=== PATIENT | female | born 1925 ===

== ENCOUNTER 2016-08-23 17:05 | Day surgery (SDC) | payer MEDICARE, OTHER ==
[~2016-08-23] VITALS: Ht 157.5 cm; Wt 89.8 kg
[2016-08-23 17:05] VITALS: BP 133/70
--- OUTSIDE RECORDS SUMMARY | 2016-08-23 17:17 | XMS REPORT | Clinical Summary ---
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 Juan Manuel Todd MD Other B-complex deficiencies PERNICIOUS ANEMIA 281.0 Active Juan Manuel Todd MD Pernicious anemia HYPOTHYROIDISM 244.9 Active Nate Hayes MD Unspecified hypothyroidism CVA 436 Active Nate Hayes MD Acute, but ill -defined, cerebrovascular disease RECURRENT UTI'S, HX OF V13.00 Active Nate Hayes MD Personal history of unspecified urinary disorder FATIGUE 780.79 Resolved Pk Valderrama MD Other malaise and fatigue DYSLIPIDEMIA 272.4 Active Nate Hayes MD Other and unspecified hyperlipidemia SINUSITIS 473.9 Resolved Nate Hayes MD Unspecified sinusitis (chronic) DIZZINESS 780.4 Resolved Pk Valderrama MD Dizziness and giddiness DYSURIA 788.1 Resolved Nate Hayes MD Dysuria ATAXIA 781.3 Resolved Pk Valderrama MD Lack of coordination ONYCHOMYCOSES 110.1 Resolved Pk Valderrama MD Dermatophytosis of nail MAXILLARY SINUSITIS 473.0 Resolved Estela Baker APRN Chronic maxillary sinusitis ORTHOSTASIS 458.0 Resolved Pk Valderrama MD Orthostatic hypotension NAUSEA WITH VOMITING 787.01 Resolved Nate Hayes MD Nausea with vomiting DYSURIA 788.1 Resolved Nate Hayes MD Dysuria PHARYNGITIS 462 Resolved Nate Hayes MD Acute pharyngitis DYSURIA 788.1 Resolved Nate Hayes MD Dysuria URINARY TRACT INFECTION 599.0 Resolved Pk Valderrama MD Urinary tract infection, site not specified URI 465.9 Resolved Pk Valderrama MD Acute upper respiratory infections of unspecified site EAR PAIN, RIGHT 388.70 Resolved Pk Valderrama MD Otalgia, unspecified ACTINIC KERATOSIS 702.0 Resolved Pk Valderrama MD Actinic keratosis BRONCHITIS 490 Resolved Pk Valderrama MD Bronchitis, not specified as acute or chronic Sinusitis, maxillary, acute 461.0 Resolved Pk Valderrama MD Acute maxillary sinusitis Upper respiratory infection, viral 465.9 Active Pk Valderrama MD Acute upper respiratory infections of unspecified site FOOT AND TOE(S), SUPERFICIAL FOREIGN BODY (SPLINTER), WITHOUT MAJOR OPEN WOUND , INFECTED 917.7 Active Nate Hayes MD Superficial foreign body (splinter) of foot and toe(s), without major open wound , infected FH Breast Cancer V16.3 Active Odilon Maciel MD Family history of malignant neoplasm of breast AFTERCARE FOLLOW SURGERY MUSCULOSKEL SYSTEM NEC V58.78 Active Odilon Maciel MD Aftercare following surgery of the musculoskeletal system, NEC Family History of Melanoma V16.8 Active Odilon Maciel MD Family history of other specified malignant neoplasm Sinusitis 461.9 Active Juan Manuel Todd MD Acute sinusitis, unspecified Aftercare following surgery of the skin and subcutaneous tissue, NEC V58.77 Active Bharat Mccoy NURSING TECH Aftercare following surgery of the skin and subcutaneous tissue, NEC NEOPLASM OF UNCERTAIN BEHAVIOR OF SKIN 238.2 Active Odilon Maicel MD Neoplasm of uncertain behavior of skin Boil 680.9 Active Shirley Valdes NURSING TECH Carbuncle and furuncle of unspecified site Health maintenance exam V70.0 Active Neyda Bennett LPN Routine general medical examination at a health care facility Ganglion cyst, wrist, left 727.41 Active Nate Hayes MD Ganglion of joint FATIGUE ICD-780.79 Inactive Pk Valderrama MD 2013 SINUSITIS ICD-473.9 Inactive Nate Hayes MD DIZZINESS ICD-780.4 Inactive Pk Valderrama MD DYSURIA ICD-788.1 Inactive Nate Hayes MD 09/02 ATAXIA ICD-781.3 Inactive Pk Valderrama MD 11/11 ONYCHOMYCOSES ICD-110.1 Inactive Pk Valderrama MD MAXILLARY SINUSITIS ICD-473.0 Inactive Estela Baker APRN ORTHOSTASIS ICD-458.0 Inactive Pk Valderrama MD NAUSEA WITH VOMITING ICD-787.01 Inactive Nate Hayes MD DYSURIA ICD-788.1 Inactive Nate Hayes MD 10/28 PHARYNGITIS ICD-462 Inactive Nate Hayes MD DYSURIA ICD-788.1 Inactive Nate Hayes MD 01/13 URINARY TRACT INFECTION ICD-599.0 Inactive Pk Valderrama MD URI ICD-465.9 Inactive Pk Valderrama MD EAR PAIN, RIGHT ICD-388.70 Inactive Pk Valderrama MD ACTINIC KERATOSIS ICD-702.0 Inactive Pk Valderrama MD BRONCHITIS ICD-490 Inactive Pk Valderrama MD 2013 Sinusitis, maxillary, acute ICD-461.0 Inactive Pk Valderrama MD Medication List Medication Instructions Start Date Stop Date Generic Name NDC Status Provider Patient Instruction MUPIROCIN 2 % OINT apply twice a day MUPIROCIN 41354516826 No Longer Active Nate Hayes MD Active FLONASE 50 MCG/ACT SUSP 2 puffs in each nostril daily as needed FLUTICASONE PROPIONATE 88269836566 Active Nate Hayes MD Active LORATADINE 10 MG TABS 1 tablet by mouth daily PRN drainage/congestion LORATADINE 80187196807 No Longer Active Nate Hayes MD Active BACTROBAN 2 % CREAM Use twice a day to the boil. MUPIROCIN CALCIUM 86059048304 Active Shirley Yokum NURSING TECH Active CLARITHROMYCIN 500 MG TABS 1 tablet by mouth twice daily CLARITHROMYCIN 10847473853 No Longer Active Shirley Yokum NURSING TECH Active ZITHROMAX 250 MG TAB 2 po today, then 1 po q days 2-5 AZITHROMYCIN 34422774719 No Longer Active Juan Manuel Todd MD Active CEPHALEXIN 500 MG CAPS 1 twice a day CEPHALEXIN 15696005836 No Longer Active Juan Mnauel Todd MD Active CEPHALEXIN 500 MG TABS One by mouth four times daily CEPHALEXIN 11318339222 No Longer Active Juan Manuel Todd MD Active CEFTIN 500 MG TAB 1 tablet by mouth twice daily CEFUROXIME AXETIL 67842773063 No Longer Active Nate Hayes MD Active CEFTIN 500 MG TAB 1 by mouth twice daily for fourteen days 11/11 CEFUROXIME AXETIL 50651511153 No Longer Active Pk Valderrama MD Active PREDNISONE 20 MG TAB 2 tabs daily for 3 days, 1 tab daily for 3 days, 1/2 tab daily for 2 days PREDNISONE 64082806826 No Longer Active Gus Snider DO Active LEVAQUIN 500 MG TAB 1 tablet by mouth daily LEVOFLOXACIN 10658005934 No Longer Active Gus Snider DO Active ZITHROMAX 250 MG TAB 2 po today, then 1 po q days 2-8 AZITHROMYCIN 34989022642 No Longer Active Estela Baker APRN Active LORATADINE 10 MG TABS 1 tablet by mouth daily as needed for allergies 2012 LORATADINE 42698939615 No Longer Active Estela Baker APRN Active EQ STOOL SOFTENER/LAXATIVE 8.6-50 MG TABS 2 tablets at bedtime SENNOSIDES-DOCUSATE SODIUM 59798540004 Active Nate Hayes MD Active CIPRO 250 MG TAB 1 tablet by mouth twice daily CIPROFLOXACIN HCL 96742864479 No Longer Active Nate Hayes MD Active LUTEIN 20 MG CAPS one capsule daily LUTEIN 32391685574 Active Nate Hayes MD Active ALFALFA 250 MG TABS 2 tablets daily ALFALFA 19157799475 No Longer Active Nate Hayes MD Active ZITHROMAX Z-GIRMA 250 MG TABS 2 today, then 1 daily for 4 days 2012 AZITHROMYCIN 48247509282 No Longer Active Nate Hayes MD Active ASPIRIN 325 MG TAB one tablet daily as needed for headache ASPIRIN 79821400650 No Longer Active Nate Hayes MD Active L-LYSINE 500 MG CAPS one capsule daily LYSINE 95831919141 No Longer Active Nate Hayes MD Active PARSLEY LEAVES POWD one tablet daily PARSLEY LEAVES 49056920050 No Longer Active Nate Hayes MD Active LUTEIN 20 MG CAPS one capsule daily LUTEIN 71151473433 No Longer Active Nate Hayes MD Active GLUTAMINE 500 MG CAPS one capsule daily GLUTAMINE 25305283803 No Longer Active Nate Hayes MD Active VITAMIN E 400 IU CAP 2 capsules daily VITAMIN E 86206635454 No Longer Active Nate Hayes MD Active NIACIN 500 MG TAB one tablet daily NIACIN 06896370922 No Longer Active Nate Hayes MD Active BIOTIN 5000 MCG TABS one tablet daily BIOTIN 29774099435 No Longer Active Nate Hayes MD Active ZOFRAN ODT 4 MG (ONDANSETRON) 1 po q6hr PRN Nausea ZOFRAN ODT 4 MG (ONDANSETRON) No Longer Active Nate Hayes MD Active CIPRO 250 MG TAB 1 tablet by mouth twice daily CIPROFLOXACIN HCL 00740617503 No Longer Active Estela Baker APRN Active FLONASE 50 MCG/ACT SUSP 1 spray each nostril am and hs FLUTICASONE PROPIONATE 62012444226 No Longer Active Estela Baker APRN Active FLUDROCORTISONE ACETATE 0.1 MG TABS 1 by mouth every morning to prevent low blood pressure FLUDROCORTISONE ACETATE 20289486745 No Longer Active Nate Hayes MD Active AZITHROMYCIN 500 MG SOLR 1 po q day AZITHROMYCIN 62152160046 No Longer Active Nate Hayes MD Active KEFLEX 500 MG CAP 1 four times a day CEPHALEXIN 54210425975 No Longer Active Gus Snider DO Active TERBINAFINE HCL 250 MG TABS 1 daily for 12 weeks TERBINAFINE HCL 65555867468 No Longer Active Nate Hayes MD Active SYNTHROID 137 MCG TABS one tablet daily LEVOTHYROXINE SODIUM 81094155163 Active Shirley Valdes APRN Active GLUCOSAMINE CHONDR COMPLEX CAPS Take one by mouth daily GLUCOSAMINE- CHONDROITIN CAPS 46791890228 Active Nate Hayes MD Active CIPRO 250 MG TAB 1 tablet by mouth twice daily CIPROFLOXACIN HCL 15185145645 No Longer Active Janeen Ibarra RN Active DOXYCYCLINE HYCLATE 100 MG CAP 1 cap by mouth twice daily DOXYCYCLINE HYCLATE 93200093784 No Longer Active Nate Hayes MD Active NITROFURANTOIN MACROCRYSTAL 100 MG CAPS one tablet three times a week NITROFURANTOIN MACROCRYSTAL 71284324698 Active Nate Hayes MD Active ASPIRIN 81 MG TAB 1 tablet by mouth daily ASPIRIN 22554339575 Active Nate Hayes MD Active DOXYCYCLINE HYCLATE 100 MG CAP 1 cap by mouth twice daily DOXYCYCLINE HYCLATE 100 MG CAP 944110 DOXYCYCLINE HYCLATE Inactive CIPRO 250 MG TAB 1 tablet by mouth twice daily CIPRO 250 MG TAB 639826 CIPROFLOXACIN HCL Inactive KEFLEX 500 MG CAP 1 four times a day KEFLEX 500 MG CAP 632588 CEPHALEXIN Inactive AZITHROMYCIN 500 MG SOLR 1 po q day AZITHROMYCIN 500 MG SOLR 958085 AZITHROMYCIN Inactive FLUDROCORTISONE ACETATE 0.1 MG TABS 1 by mouth every morning to prevent low blood pressure FLUDROCORTISONE ACETATE 0.1 MG TABS 136834 FLUDROCORTISONE ACETATE Inactive FLONASE 50 MCG/ACT SUSP 1 spray each nostril am and hs FLONASE 50 MCG/ACT SUSP 095740 FLUTICASONE PROPIONATE Inactive ZOFRAN ODT 4 MG (ONDANSETRON) 1 po q6hr PRN Nausea ZOFRAN ODT 4 MG (ONDANSETRON) Inactive BIOTIN 5000 MCG TABS one tablet daily BIOTIN 5000 MCG TABS 424055 BIOTIN Inactive NIACIN 500 MG TAB one tablet daily NIACIN 500 MG TAB 506879 NIACIN Inactive VITAMIN E 400 IU CAP 2 capsules daily VITAMIN E 400 IU CAP 959833 VITAMIN E Inactive GLUTAMINE 500 MG CAPS one capsule daily GLUTAMINE 500 MG CAPS 795161 GLUTAMINE Inactive LUTEIN 20 MG CAPS one capsule daily LUTEIN 20 MG CAPS 789323 LUTEIN Inactive PARSLEY LEAVES POWD one tablet daily PARSLEY LEAVES POWD PARSLEY LEAVES Inactive L-LYSINE 500 MG CAPS one capsule daily L-LYSINE 500 MG CAPS 554837 LYSINE Inactive ASPIRIN 325 MG TAB one tablet daily as needed for headache ASPIRIN 325 MG TAB 702224 ASPIRIN Inactive ALFALFA 250 MG TABS 2 tablets daily ALFALFA 250 MG TABS 473406 ALFALFA Inactive CIPRO 250 MG TAB 1 tablet by mouth twice daily CIPRO 250 MG TAB 034301 CIPROFLOXACIN HCL Inactive LORATADINE 10 MG TABS 1 tablet by mouth daily as needed for allergies 2012 LORATADINE 10 MG TABS 906133 LORATADINE Inactive LEVAQUIN 500 MG TAB 1 tablet by mouth daily LEVAQUIN 500 MG TAB 232915 LEVOFLOXACIN Inactive CEFTIN 500 MG TAB 1 by mouth twice daily for fourteen days 11/11 CEFTIN 500 MG TAB 442800 CEFUROXIME AXETIL Inactive CEFTIN 500 MG TAB 1 tablet by mouth twice daily CEFTIN 500 MG TAB 233862 CEFUROXIME AXETIL Inactive CEPHALEXIN 500 MG TABS One by mouth four times daily CEPHALEXIN 500 MG TABS 960205 CEPHALEXIN Inactive CEPHALEXIN 500 MG CAPS 1 twice a day CEPHALEXIN 500 MG CAPS 519184 CEPHALEXIN Inactive LORATADINE 10 MG TABS 1 tablet by mouth daily PRN drainage/congestion LORATADINE 10 MG TABS 458967 LORATADINE Inactive MUPIROCIN 2 % OINT apply twice a day MUPIROCIN 2 % OINT 311537 MUPIROCIN Inactive TERBINAFINE HCL 250 MG TABS 1 daily for 12 weeks TERBINAFINE HCL 250 MG TABS 314195 TERBINAFINE HCL Inactive CIPRO 250 MG TAB 1 tablet by mouth twice daily CIPRO 250 MG TAB 505036 CIPROFLOXACIN HCL Inactive ZITHROMAX Z-GIRMA 250 MG TABS 2 today, then 1 daily for 4 days 2012 ZITHROMAX Z-GIRMA 250 MG TABS 8339650 AZITHROMYCIN Inactive ZITHROMAX 250 MG TAB 2 po today, then 1 po q days 2-8 ZITHROMAX 250 MG TAB 0909919 AZITHROMYCIN Inactive PREDNISONE 20 MG TAB 2 tabs daily for 3 days, 1 tab daily for 3 days, 1/2 tab daily for 2 days PREDNISONE 20 MG TAB 994642 PREDNISONE Inactive ZITHROMAX 250 MG TAB 2 po today, then 1 po q days 2-5 ZITHROMAX 250 MG TAB 4540978 AZITHROMYCIN Inactive CLARITHROMYCIN 500 MG TABS 1 tablet by mouth twice daily CLARITHROMYCIN 500 MG TABS 984635 CLARITHROMYCIN Inactive Immunizations Vaccine Administration Date Value Standard Description Td (adult) vaccine, adsorbed, preservative free Td (adult) preservative free [[id number]] tetanus and diphtheria toxoids, adsorbed, preservative free, for adult use Td (adult) vaccine, adsorbed Td (adult) adsorbed [CVX09] Vital Signs Date Name Value Unit Range Description blood pressure, diastolic - 8462-4 77 mm[Hg] BP cervantes blood pressure, systolic - 8480-6 157 mm[Hg] BP sys pulse rate E&M - 8867-4 75 /min Heart rate temperature E&M 97.5 [degF] Body temperature weight E&M - 3141-9 196.8 [lb_av] Weight Measured blood pressure, diastolic - 8462-4 65 mm[Hg] BP cervantes blood pressure, systolic - 8480-6 99 mm[Hg] BP sys pulse rate E&M - 8867-4 80 /min Heart rate temperature E&M 98.2 [degF] Body temperature weight E&M - 3141-9 196 [lb_av] Weight Measured blood pressure, diastolic - 8462-4 82 mm[Hg] BP cervantes blood pressure, systolic - 8480-6 171 mm[Hg] BP sys pulse rate E&M - 8867-4 81 /min Heart rate temperature E&M 98 [degF] Body temperature weight E&M - 3141-9 201.6 [lb_av] Weight Measured blood pressure, diastolic - 8462-4 75 mm[Hg] BP cervantes blood pressure, systolic - 8480-6 144 mm[Hg] BP sys height E&M - 8302-2 62.5 [in_us] Bdy height pulse rate E&M - 8867-4 73 /min Heart rate temperature E&M 97.5 [degF] Body temperature weight E&M - 3141-9 199.50 [lb_av] Weight Measured blood pressure, diastolic - 8462-4 79 mm[Hg] BP cervantes blood pressure, systolic - 8480-6 157 mm[Hg] BP sys pulse rate E&M - 8867-4 71 /min Heart rate temperature E&M 98.3 [degF] Body temperature weight E&M - 3141-9 201.8 [lb_av] Weight Measured blood pressure, diastolic - 8462-4 67 mm[Hg] BP cervantes blood pressure, systolic - 8480-6 110 mm[Hg] BP sys height E&M - 8302-2 62.5 [in_us] Bdy height pulse rate E&M - 8867-4 74 /min Heart rate temperature E&M 97.4 [degF] Body temperature weight E&M - 3141-9 197.8 [lb_av] Weight Measured blood pressure, diastolic - 8462-4 61 mm[Hg] BP cervantes blood pressure, systolic - 8480-6 109 mm[Hg] BP sys pulse rate E&M - 8867-4 82 /min Heart rate temperature E&M 98.5 [degF] Body temperature weight E&M - 3141-9 200 [lb_av] Weight Measured blood pressure, diastolic - 8462-4 68 mm[Hg] BP cervantes blood pressure, systolic - 8480-6 108 mm[Hg] BP sys height E&M - 8302-2 62.5 [in_us] Bdy height pulse rate E&M - 8867-4 78 /min Heart rate temperature E&M 97.6 [degF] Body temperature weight E&M - 3141-9 200.8 [lb_av] Weight Measured blood pressure, diastolic - 8462-4 86 mm[Hg] BP cervantes blood pressure, systolic - 8480-6 163 mm[Hg] BP sys height E&M - 8302-2 62.5 [in_us] Bdy height pulse rate E&M - 8867-4 74 /min Heart rate temperature E&M 98.3 [degF] Body temperature weight E&M - 3141-9 203 [lb_av] Weight Measured blood pressure, diastolic - 8462-4 78 mm[Hg] BP cervantes blood pressure, systolic - 8480-6 164 mm[Hg] BP sys height E&M - 8302-2 62.5 [in_us] Bdy height pulse rate E&M - 8867-4 72 /min Heart rate temperature E&M 98.7 [degF] Body temperature weight E&M - 3141-9 202.4 [lb_av] Weight Measured blood pressure, diastolic - 8462-4 78 mm[Hg] BP cervantes blood pressure, systolic - 8480-6 166 mm[Hg] BP sys height E&M - 8302-2 62.5 [in_us] Bdy height pulse rate E&M - 8867-4 71 /min Heart rate temperature E&M 98.1 [degF] Body temperature weight E&M - 3141-9 200 [lb_av] Weight Measured Diagnostic Results Date Name Value Unit Range Description Lab Report: Lipid Panel - Chemistry cholesterol, serum 153 mg/dL 564-366 1828/01/28 triglyceride, serum, fasting 101 mg/dL 30-200 HDL cholesterol, serum 39 mg/dL 32-96 LDL cholesterol, serum 94 mg/dL 0-130 Lab Report: Thyroid Stimulating Hormone (L), Free Thyroxine (L) - Chemistry TSH 0.90 m[iU]/mL 0.36-3.74 thyroxine, serum, free 1.29 ng/dL 0.76-1.46 Encounters Code Encounter Date Provider Facility CPT-10586 Level 2 Est. Patient 15:20:20 INJURY/SAFETY HAZARD ASSESSMENT Nate Hayes MD [facility] CPT-38475 Level 3 Est. Patient 16:11:19 INJURY/SAFETY HAZARD ASSESSMENT Shirley Valdes APRN [facility] CPT-78413 Level 2 Est. Patient 19:37:34 CDT Odilon Maciel MD [facility] CPT-47172 Level 3 Est. Patient 11:32:55 CDT Juan Manuel Todd MD [facility] CPT-46172 Level 2 Est. Patient 12:55:17 CDT Nate Hayes MD [facility] CPT-96688 Level 2 Est. Patient 15:29:55 CDT Odilon Maciel MD [facility] CPT-94550 Level 2 Est. Patient 15:26:34 CDT Odilon Maciel MD [facility]-30037 Level 3 Est. Patient 11:27:22 CDT Nate Hayes MD [facility] CPT-88711 Level 3 Est. Patient 08:56:03 CDT Pk Valderrama MD [facility]-93278 Level 3 Est. Patient 15:01:27 INJURY/SAFETY HAZARD ASSESSMENT Gus Snider [facility] CPT-78830 Level 3 Est. Patient 10:16:09 CDT Nate Hayes MD [facility]-33512 Level 3 Est. Patient 15:36:44 CDT Estela Baker [facility] CPT-71498 Level 2 Est. Patient 12:13:29 CDT Nate Hayes MD [facility] CPT-52934 Level 3 Est. Patient 16:06:11 CDT Nate Hayes MD [facility] CPT-25085 Level 3 Est. Patient 10:30:11 CDT Nate Hayes MD [facility] CPT-53031 Level 3 Est. Patient 10:02:38 CDT Nate Hayes MD [facility] CPT-29546 Level 3 Est. Patient 09:55:25 CDT Estela Baker [facility] CPT-13642 Level 3 Est. Patient 14:52:28 CDT Nate Hayes MD [facility] CPT-43068 Level 4 Est. Patient 15:41:03 CDT Nate Hayes MD [facility] CPT-16538 Level 3 Est. Patient 14:07:57 INJURY/SAFETY HAZARD ASSESSMENT Gus Snider [facility] CPT-08244 Level 3 Est. Patient 11:33:35 CDT Nate Hayes MD [facility] CPT-57556 Level 3 Est. Patient 12:19:54 CDT Nate Hayes MD [facility] CPT-40901 Level 3 Est. Patient 12:29:59 CDT Nate Hayes MD [facility] CPT-47941 Level 3 Est. Patient 14:22:23 CDT Nate Hayes MD [facility] CPT-01800 Level 3 Est. Patient 14:24:43 CDT Nate Hayes MD [facility] CPT-62383 Level 4 Est. Patient 16:40:35 CDT Nate Hayes MD [facility] Procedures Code Procedure Name Date Entry Date Standard Description CPT-J3301 Kenalog 40 mg (Triamcinolone Acetonide) 15:20:20 INJURY/SAFETY HAZARD ASSESSMENT CPT-80664 Aspir/Inject Sm Joint 15:20:20 INJURY/SAFETY HAZARD ASSESSMENT CPT-LR Lesion Removal 19:37:34 CDT CPT-86429 Postop F/U Visit 13:39:43 CDT CPT-62626 Postop F/U Visit 14:18:40 CDT CPT-31304 Postop F/U Visit 13:48:50 CDT CPT-15511 Administration single or combination vaccine inc oral 11 :11:25 CDT CPT-28986 Td (adult) preservative free 11:11:25 CDT CPT-99443 Toes 2V 10:59:17 CDT CPT-Cryo Cryotherapy 10:16:09 CDT CPT-40332 Administration single or combination vaccine inc oral 14 :45:19 CDT CPT-38637 Td (Adult) 14:45:19 CDT CPT-J3420 Vitamin B12 1000mcg (Cyanocobalamin) 09:25:21 CDT 02/09 CPT-33358 Abx/Therapy Injection 09:25:21 CDT CPT-J3420 Vitamin B12 1000mcg (Cyanocobalamin) 08:47:05 CDT 01/09 CPT-10867 Abx/Therapy Injection 08:47:05 CDT CPT-J3420 Vitamin B12 1000mcg (Cyanocobalamin) 08:55:43 CDT 12/11 CPT-97455 Abx/Therapy Injection 08:55:43 CDT CPT-J3420 Vitamin B12 1000mcg (Cyanocobalamin) 09:03:04 CDT 11/10 CPT-77049 Abx/Therapy Injection 09:03:04 CDT CPT-J3420 Vitamin B12 1000mcg (Cyanocobalamin) 12:13:56 CDT 10/10 CPT-94052 Abx/Therapy Injection 12:13:56 CDT CPT-80777 Abx/Therapy Injection 18:16:38 CDT CPT-J1040 Depo Medrol 80 mg (Methyl Prednisolone Acetate) 14:24: 43 CDT CPT-J3420 Vitamin B12 1000mcg (Cyanocobalamin) 12:19:01 CDT 09/09 CPT-21247 Abx/Therapy Injection 12:19:01 CDT CPT-J3420 Vitamin B12 1000mcg (Cyanocobalamin) 08:09:59 CDT 09/09 CPT-J3420 Vitamin B12 1000mcg (Cyanocobalamin) 09:03:46 INJURY/SAFETY HAZARD ASSESSMENT 07/31 CPT-08959 Abx/Therapy Injection 09:03:46 INJURY/SAFETY HAZARD ASSESSMENT CPT-J3420 Vitamin B12 1000mcg (Cyanocobalamin) 09:17:21 INJURY/SAFETY HAZARD ASSESSMENT 06/03 CPT-79725 Abx/Therapy Injection 09:17:21 INJURY/SAFETY HAZARD ASSESSMENT CPT-J3420 Vitamin B12 1000mcg (Cyanocobalamin) 14:48:13 INJURY/SAFETY HAZARD ASSESSMENT 05/03 CPT-04709 Abx/Therapy Injection 14:48:13 INJURY/SAFETY HAZARD ASSESSMENT CPT-J3420 Vitamin B12 1000mcg (Cyanocobalamin) 17:23:41 CDT 04/03 CPT-12590 Abx/Therapy Injection 17:23:41 CDT
[2016-08-23 18:02] LABS: MEAN PLATELET VOLUME 11.2 FL (7.4-10.4); RED BLOOD COUNT 4.28 10^6/uL (4.35-5.85); RED CELL DISTRIBUTION WIDTH 14.6 % (10.0-14.5); WHITE BLOOD COUNT 6.7 10^3/uL (4.3-11.0)
[2016-08-23] MEDS ORDERED: NITR100C PO (18:16)
[2016-08-23] MEDS ORDERED: LEVO137T32 PO (18:16)
[2016-08-23] MEDS ORDERED: FLUT16SP22 (18:16)
[2016-08-23 18:20] LABS: CALCIUM 8.3 MG/DL (8.5-10.1); CREATININE SERUM 1.11 MG/DL (0.60-1.30); POTASSIUM 4.5 MMOL/L (3.6-5.0)
[2016-08-23] MEDS ORDERED: D5 1/2 NS W/KCL 20 MEQ/L 1,000 ML IV ONE (18:21)
[2016-08-23] MEDS ORDERED: FLU TRIvalent (5 YOA+) 2016-17 (AFLURIA) 0.5 ML IM ONE (19:00)
[2016-08-23] MEDS ORDERED: CATHETER FLUSH 10 ML SYR IV PRN (19:00)
[2016-08-23] MEDS ORDERED: D5 1/2 NS W/KCL 20 MEQ/L 1,000 ML IV SCH (19:00)
[2016-08-23] MEDS ORDERED: COCAINE HCL 4% 2 ML SYR ONE (19:25)
[2016-08-23] MEDS ORDERED: PHENYLEPHRINE 0.5% NASAL SPR (NEO-SYNEPHRINE) REG ONE (19:25)
[2016-08-23] MEDS ORDERED: LIDOCAINE/EPI 1%-1:100,000 (XYLOCAINE) 20ML ONE (19:25)
[2016-08-23] MEDS ORDERED: MUPIROCIN 2% OINT 22 GM (BACTROBAN) TUBE ONE (19:25)
[2016-08-23] MEDS ORDERED: ASPI-586 PO (19:51)
[2016-08-23] MEDS ORDERED: LACTATED RINGERS 1,000 ML IV ONE (19:54)
[2016-08-23] MEDS ORDERED: LIDOCAINE PF 2% 10 ML (XYLOCAINE) AMP ONE (19:54)
[2016-08-23] MEDS ORDERED: proPOfol 200 MG/20 ML (DIPRIVAN) VIAL IV ONE (19:54)
[2016-08-23] MEDS ORDERED: SEVOFLURANE (ULTANE) 15 ML INHAL SOLN ONE (19:54)
[2016-08-23] MEDS ORDERED: fentaNYL INJECTION 100 MCG/2 ML AMP ONE (19:55)
[2016-08-23] MEDS ORDERED: MIDAZOLAM 2 MG/2 ML (VERSED) VIAL ONE (19:56)
--- NOTE | 2016-08-23 20:04 | Progress Note-Pre Operative ---
Pre-Operative Progress Note H&P Reviewed The H&P was reviewed, patient examined and no changes noted. Date H&P Reviewed: Aug 23, 2016 Time H&P Reviewed: 19:50 Pre-Operative Diagnosis: REcurrent Right Posterior Epistaxis CHANTAL ANGUIANO MD Aug 23, 2016 8:04 pm
[2016-08-23] MEDS ORDERED: morphine INJ 10 MG/ML 1ML (SYR OR VIAL) ONE (20:20)
[2016-08-23] MEDS ORDERED: SUCCINYLCHOLINE INJ 100 MG/5 ML SYR ONE (20:44)
--- NOTE | 2016-08-23 20:48 | Progress Note-Post Operative ---
Post-Operative Progess Note Pre-Operative Diagnosis REcurrent Right Posterior Epistaxis Post-Operative Diagnosis same Post-Op Procedure Note Date of Procedure: Aug 23, 2016 Name of Procedure: Endoscopic Repair of Right Posterior Epistaxis Anesthesia Type get Estimated blood loss (mL): minimal Packing: dnp-right side of nose CHANTAL ANGUIANO MD Aug 23, 2016 8:48 pm
[2016-08-23] MEDS ORDERED: ACETAMINOPHEN 500 MG TAB (TYLENOL) PO PRN (21:00)
[2016-08-23] MEDS ORDERED: HYDROcodone/APAP 5 MG/325 MG (LORTAB) TAB PO PRN (21:00)
[2016-08-23] MEDS ORDERED: PHENYLEPHRINE 0.5% NASAL SPR (NEO-SYNEPHRINE) REG PRN (21:00)
[2016-08-23] MEDS: D5 1/2 NS W/KCL 20 MEQ/L 1,000 ML IV SCH (22:13)
[2016-08-23] MEDS ORDERED: MEPERIDINE (DEMEROL) INJ 50 MG/ML ONE (23:57)
[2016-08-24] VITALS: BP 102/54
[2016-08-24 04:00] VITALS: BP 114/55
--- NOTE | 2016-08-24 06:15 | Progress Note-Standard ---
Standard Progress Note Progress Notes/Assess & Plan Progress/Assessment & Plan ENT-Benja Doing Well Complains of throat soreness no bleeding OP-dry Nose-no new or old blood seen will discharge after lunch Discharge prescriptions in chart RTC-2 weeks [facility] Epistaxis discharge instructions Final Diagnosis Right Posterior Epistaxis CHANTAL ANGUIANO MD Aug 24, 2016 6:15 am
[2016-08-24 08:00] VITALS: BP 159/71
[2016-08-24] MEDS: D5 1/2 NS W/KCL 20 MEQ/L 1,000 ML IV SCH (10:09)
--- NOTE | 2016-08-24 11:50 | Anesthesia-General Post-Op ---
General Patient Condition Mental Status/LOC: Same as Preop Cardiovascular: Satisfactory Nausea/Vomiting: Absent Respiratory: Satisfactory Pain: Controlled Complications: Absent Post Op Complications Complications None Follow Up Care/Instructions Patient Instructions None needed. Anesthesia/Patient Condition Patient Condition Patient is doing well, no complaints, stable vital signs, no apparent adverse anesthesia problems. No complications reported per nursing. D/C home per [facility] Criteria: No RADHA CHRISTENSEN CRNA Aug 24, 2016 11:49
[2016-08-24 12:00] VITALS: BP 166/73
[2016-08-24 15:30] VITALS: BP 166/73
== END 2016-08-24 06:15 | disposition home or self-care (01) ==
LOC: 4TH 17:05 → SDC 17:05 → UNDOADMIN 17:10 → 4TH 17:10 → SDC 08-24 06:15 → UNDODISIN 08-24 15:30 → EDSTATUS 08-27 09:38
PROVIDERS: ATTEND Otolaryngology Otolaryngology/Facial Plastic Surgery
DX: R04.0 Epistaxis (principal); Z11.2 Encounter for screening for other bacterial diseases; Z86.73 Personal history of transient ischemic attack (TIA), and cerebral infarction without residual deficits
CPT/HCPCS: 36415; 80048; 85027; 87081; 93005